=== PATIENT | female | born 1955 | race Caucasian/White ===

== ENCOUNTER → 2016-09-23 | Day surgery (SDC) | payer MEDICARE, OTHER ==
[~2016-09-23] MED LIST: ACETAMINOPHEN325 MG PO; ACETAMINOPHEN650 M3 PO; ADVAIR 250-501 EAC1 IH; ADVAIR DISCUS INH; ALBUTEROL MININEB NEB; ALBUTEROL NEB; ALBUTEROL17 GM INH; AMLODIPINE 10 MG PO; AMLODIPINE BESY10 MG PO; CLARITIN10 M2 PO; CLARITIN10 M3 PO; DESYREL50 MG PO; DOCUSATE SODIU100 MG PO; GABAPENTIN 300 MG PO; GABAPENTIN300 M2 PO; IBUPROFEN PO; LEVAQUIN750 MG PO; LORATADINE 10 MG PO; METFORMIN HCL500 M1 PO; METFORMIN HCL500 M3 PO; MIRALAX17 G2 PO; NORVASC10 MG PO; PRAVASTATIN 40 MG PO; PRAVASTATIN SOD40 MG PO; PREDNISONE PO; PRILOSEC PO; PROAIR HFA8.5 GM INH; SERTRALINE HCL100 M1 PO; SYMBICORT INH; SYMBICORT80 INH; ZOLOFT 100 MG PO; ZOLOFT100 MG PO
--- NOTE | ~2016-09-23 | OR ---
Unit #: [id number] #: [id number] Patient: SHARITA FRY [id number] [address] [address] [id number] O MR#: [id number] NAME: SHARITA FRY ROOM: Date of Procedure: 09/23/2016 Admission Date: 09/23/2016 Surgeon: Tank Pantoja M.D. : 1955 Attending Physician: Tank Pantoja M.D. Referring Physician: Tank Pantoja M.D. Primary Care Physician: Susan Quevedo A.P.R.N. OPERATIVE REPORT PROCEDURE PERFORMED Esophagogastroduodenoscopy with biopsy. Colonoscopy with biopsy. INDICATIONS FOR PROCEDURE The patient with chronic diarrhea, abdominal pain, anemia, GERD symptoms, undergoing evaluation of upper endoscopy and colonoscopy. MEDICATIONS Monitored anesthesia. POSTOPERATIVE FINDINGS 1. Small hiatal hernia. 2. Chronic appearing gastritis, biopsies taken. 3. Normal duodenum and distal duodenum. 4. Colonoscopy showed normal mucosa throughout all the way to cecum. 5. Random biopsies were taken looking for microscopic colitis. 6. Internal hemorrhoids. PLAN Follow up on the pathology report. Continue with symptomatic treatment for now. DESCRIPTION OF PROCEDURE The patient was explained of the procedure, risks, and benefits along with the risks and benefits of anesthesia. She was brought to the endoscopy room. Propofol anesthesia was given. Bite block was placed. The scope was passed down the mouth and esophagus, stomach, duodenum, and distal duodenum. Findings as described. Biopsies were taken. Gently, I pulled the scope out of the patient's mouth. She tolerated it well. At this time, she was turned around and repositioned for colonoscopy. Rectal exam was done, which was normal. Colonoscope was lubricated, passed up the rectum, advanced under direct vision all the way to the cecum. Cecum was identified by ileocecal valve and appendiceal orifice. No polyps, masses, or colitis were seen. Terminal ileum could not be intubated. Random colon biopsies were taken. I retroflexed in the rectum. Small hemorrhoids seen. Gently, the scope was pulled out. She tolerated it well. No major complications were seen. Dictated by... Tank Pantoja M.D. Unit #: [id number] #: [id number] Patient: SHARITA FRY MARIZOL/aramis TD: 09/24/2016 02:23 JOB #: [id number] OPERATIVE REPORT Page 1 of 1 X Tank Pantoja MD PROCEDURE OPERATIVE NOTE
== END | disposition home or self-care (01) ==
LOC: COPS 07:16
DX: K29.50 Unspecified chronic gastritis without bleeding (principal); K22.70 Barrett's esophagus without dysplasia; K52.9 Noninfective gastroenteritis and colitis, unspecified; D64.9 Anemia, unspecified; K44.9 Diaphragmatic hernia without obstruction or gangrene; K64.8 Other hemorrhoids; E11.9 Type 2 diabetes mellitus without complications; E66.9 Obesity, unspecified; J44.9 Chronic obstructive pulmonary disease, unspecified; K21.9 Gastro-esophageal reflux disease without esophagitis; F17.210 Nicotine dependence, cigarettes, uncomplicated; Z68.28 Body mass index [BMI] 28.0-28.9, adult; Z87.440 Personal history of urinary (tract) infections; Z88.0 Allergy status to penicillin; Z88.8 Allergy status to other drugs, medicaments and biological substances; Z79.899 Other long term (current) drug therapy; Z98.890 Other specified postprocedural states
CPT/HCPCS: 82947; 88305; 88312

== ENCOUNTER → 2016-09-30 | Outpatient (CLI) | payer MEDICARE, OTHER ==
--- NOTE | ~2016-09-30 | CT2 ---
[facility] A Service of [facility] RADIOLOGY TEXT RESULTS PATIENT: SHAR[facility]Y [facility] 57 UN[facility] #: [id number] AGE: [address]: Tank Pantoja MD SEX: F ORDER DR: [id number] [facility] [address] [place], [place] [address] [id number] MR#: [id number] Acc #: [id number] NAME: SHARITA FRY : 1955 SEX: F STUDY DATE/TIME: 09/30/2016 11:15 UNIT: CCAT ROOM: STUDY DESCRIPTION: CT Abd and Pelv W Cont Attending Physician: Tank Pantoja M.D. Referring Physician: Tank Pantoja M.D. Ordering Physician: Tank Pantoja M.D. Primary Care Physician: Susan Quevedo A.P.R.N. MEDICAL IMAGING REPORT This report is preliminary unless electronic signature is present EXAM CT abdomen and pelvis with contrast 09/30/2016 INDICATIONS Right-sided abdominal pain, swelling and diarrhea for 4-[address] scan the abdomen and pelvis was performed following the administration of oral and IV contrast. Coronal and sagittal reformatted images were obtained. This CT exam was performed with one or more of the following radiation dose reduction techniques: automatic exposure control, adjustment of mA and/or kV according to patient size, and iterative reconstruction. COMPARISON STUDIES Comparison with 04/30/2015. FINDINGS During the examination the patient's IV infiltrated and a small amount of IV contrast infiltrated in the patient's arm. Therefore no further IV contrast was administered. Evaluation of the upper extremity demonstrated that it was soft, mildly tender, no skin changes or erythema. Good peripheral pulses. Patient was given discharge instructions for ice and elevation of the right arm every 15 minutes for 24 hours and to call the department with any questions. Evaluation of the lung bases demonstrates some emphysematous change. ABDOMEN: The liver is unremarkable. The gallbladder and spleen are unremarkable. The left kidney is unremarkable. There is a small cyst in the right kidney. The adrenal glands and pancreas are unremarkable. STS. [facility] A Service of [facility] RADIOLOGY TEXT RESULTS PATIENT: SHARITA FRY LOCATION: [facility] : 57 UNIT #: [id number] AGE: [address]: Tank Pantoja MD SEX: F ORDER DR: PELVIS: Sigmoid diverticulosis. No evidence for diverticulitis. Normal appendix. No free fluid. The remainder of the pelvis is unremarkable. The bone windows demonstrate degenerative changes of the lumbar spine. IMPRESSION Sigmoid diverticulosis but no evidence for diverticulitis. Dictated by... Juancho Sultana M.D. THIS IS AN ELECTRONICALLY VERIFIED REPORT Juancho Sultana M.D. at 10/01/2016 8:59 AM Margie TD: 09/30/2016 15:35 JOB #: [id number] MEDICAL IMAGING REPORT Page 1 of 1 COPY
[2016-09-30 09:44] LABS: HEMATOCRIT 33.5 % (35.0-45.0); HEMOGLOBIN 10.6 gm/dL (12.0-16.0); MEAN CELL VOLUME 84.6 FL (83-96); MEAN CORPUSCULAR HEMOGLOBIN 26.8 PG (28-34); MEAN CORPUSCULAR HGB CONC 31.7 g/dL (30-36); MEAN PLATELET VOLUME 9.5 FL (6.5-11.5); RED BLOOD COUNT 3.96 X10e (3.90-5.30); RED CELL DISTRIBUTION WIDTH 14.5 % (11.0-15.5); WHITE BLOOD COUNT 4.7 X10e3 (4.0-10.5)
[2016-09-30 10:15] LABS: ALBUMIN SERUM 3.7 g/dL (3.5-5.0); BILIRUBIN,TOTAL 0.3 mg/dL (0.2-2.0); CALCIUM SERUM 9.2 mg/dL (8.4-10.2); CREATININE SERUM 0.5 mg/dL (0.6-1.4); GLOM FILT RATE Estimated 105.2 mL/min (>60); POTASSIUM 4.2 mmol/L (3.5-5.1); PROTEIN TOTAL SERUM 6.6 g/dL (6.0-8.3)
== END | disposition home or self-care (01) ==
LOC: CCAT 08:51
PROVIDERS: Internal Medicine
DX: R10.9 Unspecified abdominal pain (principal); R19.7 Diarrhea, unspecified; K57.30 Diverticulosis of large intestine without perforation or abscess without bleeding
CPT/HCPCS: 36415; 74177; 80053; 85027; Q9967